=== PATIENT | male | born 1955 | race Caucasian/White ===

== ENCOUNTER 2016-04-10 10:37 | Emergency (ER) | payer SELFPAY ==
[~2016-04-10] VITALS: Ht 175.3 cm; Wt 106.0 kg
[2016-04-10 11:09] VITALS: BP 132/89
== END 2016-04-10 11:25 | disposition short-term general hospital (02) ==
LOC: EMS 10:42
DX: S29.9XXA Unspecified injury of thorax, initial encounter (principal); V29.9XXA Motorcycle rider (driver) (passenger) injured in unspecified traffic accident, initial encounter; Y93.89 Activity, other specified; Y92.89 Other specified places as the place of occurrence of the external cause; Y99.8 Other external cause status
CPT/HCPCS: 99285